=== PATIENT | male | born 1965 | race Caucasian/White ===

== ENCOUNTER 2020-04-13 07:43 | Emergency (ER) | payer MEDICAID ==
[~2020-04-13] VITALS: Ht 162.6 cm; Wt 79.8 kg
[2020-04-13 07:48] VITALS: BP 149/96
--- NOTE | 2020-04-13 07:50 | NUR ---
Pt ambulated to bed 12
--- NOTE | 2020-04-13 07:54 | NUR ---
Pt c/o difused abd pain with constipation x 2 days, states seen at clinic and diagnosed with H. Pylori 1 month ago. denies nausea or vomiting. Abdomen is soft, slight distended, and tender to palpate. No rebound tenderness or guarding noticed. SKIN IS PINK/WARM/DRY; AAOX4 WITH EVEN AND STEADY GAIT; LUNGS CLEAR BL; HR EVEN AND REGULAR; PT DENIES ANY FEVER, CP, SOB, OR COUGH AT THIS TIME; PATIENT STATES PAIN OF 8/10 AT THIS TIME; VSS; PATIENT POSITIONED FOR COMFORT; HOB ELEVATED; BEDRAILS UP X1; BED DOWN. ER MD MADE AWARE OF PT STATUS.
--- NOTE | 2020-04-13 07:56 | NUR ---
Dr. Spann is evaluating pt at bedside.
[2020-04-13] MEDS ORDERED: DICYCLOMINE 10 MG CAP PO STA (08:09)
[2020-04-13] MEDS ORDERED: FAMOTIDINE 20 MG TAB PO STA (08:09)
--- NOTE | 2020-04-13 08:19 | NUR ---
Xray is at bedside.
[2020-04-13 09:05] VITALS: BP 137/92
--- NOTE | 2020-04-13 09:05 | NUR ---
Patient discharged with v/s stable. Written and verbal after care instructions given and explained. Patient alert, oriented and verbalized understanding of instructions. Ambulatory with steady gait. All questions addressed prior to discharge. ID band removed. Patient advised to follow up with PMD. Rx of Colace and FLEET RECYAL ENEMA given. Patient educated on indication of medication including possible reaction and side effects. Opportunity to ask questions provided and answered.
== END 2020-04-13 09:05 | disposition home or self-care (01) ==
LOC: MED 07:43
DX: K59.00 Constipation, unspecified (principal); Z90.49 Acquired absence of other specified parts of digestive tract; A04.8 Other specified bacterial intestinal infections
CPT/HCPCS: 74018; 99283; Q0092

== ENCOUNTER 2020-05-03 08:19 | Emergency (ER) | payer MEDICAID ==
[~2020-05-03] VITALS: Ht 157.5 cm; Wt 81.2 kg
[2020-05-03 08:25] VITALS: BP 131/92
[2020-05-03] MEDS ORDERED: KETOROLAC 60 MG/2 ML VIAL IM ONE (08:55)
[2020-05-03] MEDS ORDERED: NACL 0.9% 1,000 ML IV ONE (09:50)
[2020-05-03] MEDS ORDERED: metroNIDAZOLE 500 MG/NS PREMIX 100 ML IV ONE (09:50)
[2020-05-03] MEDS ORDERED: SULFAMETH/TRIMETH DS 800/160MG 1 TAB PO ONE (09:50)
[2020-05-03 10:19] LABS: BASOPHILS # (AUTO) 0.1 K/uL (0.00-0.22); BASOPHILS % (AUTO) 0.8 % (0.0-2.0); EOSINOPHILS # (AUTO) 0.1 K/uL (0-0.4); EOSINOPHILS % (AUTO) 0.9 % (0.0-4.0); HEMATOCRIT 42.1 % (36-52); HEMOGLOBIN 14.1 g/dL (12.0-18.0); LYMPHOCYTES # (AUTO) 1.3 K/uL (2.0-11.5); LYMPHOCYTES % (AUTO) 17.3 % (20.5-51.1); MEAN CORPUSCULAR HEMOGLOBIN 29 pg (27-31); MEAN CORPUSCULAR HGB CONC 34 g/dL (33-37); MEAN CORPUSCULAR VOLUME 86.1 fL (80-94); MONOCYTES # (AUTO) 0.8 K/uL (0.8-1.0); MONOCYTES % (AUTO) 10.6 % (1.7-9.3); NEUTROPHILS # (AUTO) 5.4 K/uL (1.8-7.7); NEUTROPHILS % (AUTO) 70.4 % (42.2-75.2); PLATELET COUNT (AUTO) 290 K/uL (140-450); RED BLOOD CELL COUNT(AUTO) 4.89 MIL/uL (4.20-6.10); RED CELL DISTRIBUTION WIDTH 14.1 % (11.6-13.7); WHITE BLOOD COUNT (AUTO) 7.7 K/uL (4.8-10.8)
[2020-05-03 10:27] LABS: ANION GAP 16.2 (8-16); CARBON DIOXIDE 24.6 mmol/L (21-32); CREATININE 0.9 mg/dL (0.6-1.3); POTASSIUM 3.8 mmol/L (3.5-5.1)
[2020-05-03 10:33] LABS: ALBUMIN 3.6 g/dL (3.4-5.0); TOTAL BILIRUBIN 0.6 mg/dL (0.0-1.0)
[2020-05-03 11:38] VITALS: BP 125/87
== END 2020-05-03 11:39 | disposition home or self-care (01) ==
LOC: MED 08:19
DX: K57.92 Diverticulitis of intestine, part unspecified, without perforation or abscess without bleeding (principal); R03.0 Elevated blood-pressure reading, without diagnosis of hypertension
CPT/HCPCS: 36415; 74176; 80053; 81002; 85025; 87040; 96365; 96372; 99285; J1885; J3490; J7030; 96361; 99284

== ENCOUNTER 2020-05-28 18:09 | Inpatient (IN) | payer MEDICAID, SELFPAY ==
[~2020-05-28] VITALS: Ht 157.5 cm; Wt 77.6 kg
[2020-05-28 18:25] VITALS: BP 142/100
--- NOTE | 2020-05-28 18:30 | NUR ---
Note jennifer in EDM - 05/28/20 at 1910 by [email or web address] 54/M BIB SELF C/O LUQ ABDOMINAL PAIN RADIATING TO LEFT BACK 1 WEEK. SEEN HERE 05/03/20 FOR DIVERTICULITIS/COLITIS, ENLARGE PROSTATE GLAND.
--- NOTE | 2020-05-28 18:30 | NUR ---
54/M BIB SELF C/O LUQ ABDOMINAL PAIN RADIATING TO LEFT BACK 1 WEEK. SEEN HERE 05/03/20 FOR DIVERTICULITIS/COLITIS, ENLARGE PROSTATE GLAND. ABDOMEN SOFT, NON -TENDER. DENIES N/V/D; SKIN IS PINK/WARM/DRY; AAOX4 WITH EVEN AND STEADY GAIT; LUNGS CLEAR BL; HR EVEN AND REGULAR; PT DENIES ANY FEVER, CP, SOB, OR COUGH AT THIS TIME; PATIENT STATES PAIN OF 8/10 AT THIS TIME.PATIENT POSITIONED FOR COMFORT; HOB ELEVATED; BEDRAILS UP X1; BED DOWN. ER MD MADE AWARE OF PT STATUS.
[2020-05-28] MEDS: KETOROLAC 30 MG/ML VIAL IVP ONE ×2 (18:33→18:48)
--- NOTE | 2020-05-28 18:52 | NUR ---
PT TAKEN TO CT VIA W/C.
[2020-05-28 18:57] LABS: BASOPHILS # (AUTO) 0.1 K/uL (0.00-0.22); BASOPHILS % (AUTO) 1.3 % (0.0-2.0); EOSINOPHILS # (AUTO) 0.1 K/uL (0-0.4); EOSINOPHILS % (AUTO) 1.7 % (0.0-4.0); HEMATOCRIT 39.9 % (36-52); HEMOGLOBIN 13.1 g/dL (12.0-18.0); LYMPHOCYTES % (AUTO) 15.2 % (20.5-51.1); MEAN CORPUSCULAR HEMOGLOBIN 28 pg (27-31); MEAN CORPUSCULAR HGB CONC 33 g/dL (33-37); MEAN CORPUSCULAR VOLUME 85.8 fL (80-94); MONOCYTES # (AUTO) 0.8 K/uL (0.8-1.0); MONOCYTES % (AUTO) 11.4 % (1.7-9.3); NEUTROPHILS # (AUTO) 4.8 K/uL (1.8-7.7); NEUTROPHILS % (AUTO) 70.4 % (42.2-75.2); PLATELET COUNT (AUTO) 309 K/uL (140-450); RED BLOOD CELL COUNT(AUTO) 4.65 MIL/uL (4.20-6.10); WHITE BLOOD COUNT (AUTO) 6.9 K/uL (4.8-10.8)
[2020-05-28 19:00] LABS: APPEARANCE,URINE CLEAR (CLEAR); BILIRUBIN,URINE NEGATIVE (NEGATIVE); BLOOD, URINE 1+ (NEGATIVE); COLOR,URINE YELLOW (YELLOW); LEUKOCYTE ESTERASE ,URINE TRACE (NEGATIVE); NITRITE, URINE NEGATIVE (NEGATIVE); UGLUCOSE NEGATIVE (NEGATIVE)
[2020-05-28 19:09] LABS: ALBUMIN 3.2 g/dL (3.4-5.0); ANION GAP 13.8 (8-16); CARBON DIOXIDE 25.5 mmol/L (21-32); CREATININE 0.7 mg/dL (0.6-1.3); POTASSIUM 3.3 mmol/L (3.5-5.1); TOTAL BILIRUBIN 0.3 mg/dL (0.0-1.0)
--- NOTE | 2020-05-28 19:14 | NUR ---
RECEIVED REPORT FROM MELIDA LUU FOR CONTINUITY OF CARE.
[2020-05-28] MEDS ORDERED: NACL 0.9% 1,000 ML IV ONE (19:15)
[2020-05-28] MEDS ORDERED: LEVOFLOXACIN 750 MG/D5W PREMIX 150 ML IV ONE (19:15)
[2020-05-28] MEDS ORDERED: metroNIDAZOLE 500 MG/NS PREMIX 100 ML IV ONE (19:15)
[2020-05-28] MEDS ORDERED: DICYCLOMINE 20 MG/2 ML VIAL IM ONE (19:15)
--- NOTE | 2020-05-28 19:19 | NUR ---
Dr. Leavitt examining patient.
[2020-05-28] MEDS ORDERED: MORPHINE SULFATE 4 MG/ML SYR IVP ONE (19:25)
[2020-05-28] MEDS ORDERED: ONDANSETRON 4 MG/2 ML VIAL IVP ONE (19:25)
[2020-05-28 19:34] LABS: RBC,URINE 0-5 /HPF (0-5); WBC,URINE 0-5 /HPF (0-5)
[2020-05-28] MEDS ORDERED: KCL 20 MEQ/WATER INJ PREMIX 100 ML IV ONE (20:05)
--- NOTE | 2020-05-28 20:17 | NUR ---
Dr. Leavitt at patient bedside
[2020-05-28 20:24] LABS: PROTHROMBIN TIME 11.3 secs (10.8-13.4)
[2020-05-28] MEDS ORDERED: guaiFENesin DM 200/20 MG-10 ML 10 ML UDC PO PRN (21:00)
[2020-05-28] MEDS ORDERED: ONDANSETRON 4 MG/2 ML VIAL IM/IVP PRN (21:00)
[2020-05-28] MEDS ORDERED: HYDROcodone/APAP 7.5/325 MG 1 TAB PO PRN (21:00)
[2020-05-28] MEDS ORDERED: POTASSIUM CHLORIDE 40 MEQ, LIDOCAINE MPF 1% 25 MG in NACL 0.9% 250 ML IV PRN (21:00)
[2020-05-28] MEDS ORDERED: ACETAMINOPHEN 325 MG TAB PO PRN (21:00)
[2020-05-28] MEDS ORDERED: ZOLPIDEM 5 MG TAB PO PRN (21:00)
[2020-05-28] MEDS ORDERED: DOCUSATE SODIUM 100 MG GELCAP PO PRN (21:00)
[2020-05-28] MEDS ORDERED: DEXT 5% /NACL 0.9% 1,000 ML IV ONE (21:05)
--- NOTE | 2020-05-28 21:09 | NUR ---
X-Ray at bedside.
[2020-05-28] MEDS ORDERED: hydrALAZINE 20 MG/ML VIAL IVP PRN (21:10)
[2020-05-28 21:28] LABS: BARBITURATE, URINE NEGATIVE ng/ml (NEG <=200); BENZODIAZEPINE, URINE NEGATIVE ng/mL (NEG <=200); CANNABINOID, URINE NEGATIVE ng/mL (NEG <=50); COCAINE, URINE NEGATIVE ng/mL (NEG <=300); OPIATE, URINE NEGATIVE ng/mL (NEG <=2000); PHENCYCLIDINE SCREEN,URINE NEGATIVE ng/mL (NEG <=25)
[2020-05-28 21:35] LABS: CHOL/HDL RATIO 3.5 (1-4.5); FREE T4 (FREE THYROXINE) 1.12 ng/dL (0.76-1.46); MAGNESIUM 2.1 mg/dL (1.8-2.4); PHOSPHORUS 3.3 mg/dL (2.5-4.9); THYROID STIMULATING HORMONE 1.79 uIU/mL (0.34-3.74)
--- NOTE | 2020-05-28 22:30 | NUR ---
EKG DONE BY RT.
--- NOTE | 2020-05-28 22:41 | NUR ---
PT RESTING IN BED, HOB ELEVATED, CHEST RISE AND FALL NOTED. RR EVEN AND UNLABORED. NO NEW CONCERNS AT THIS TIME. PT ATTACHED TO PRINCIPAL TECHNICAL WRITER AND PULSE OXIMETRY. ALL NEEDS MET. BED LOCKED AND IN LOWEST POSITION, SIDE RAIL UPX1. WILL CONTINUE TO MONITOR.
--- NOTE | 2020-05-29 00:34 | NUR ---
PT SLEEPING IN BED, HOB ELEVATED. REPOSITIONED FOR COMFORT. CHEST RISE AND FALL NOTED. PT ATTACHED TO GENERATOR OPERATOR AND PULSE OXIMETRY. BED LOCKED AND IN LOWEST POSITION, SIDE RAIL UPX1. WILL CONTINUE TO MONITOR.
--- NOTE | 2020-05-29 02:20 | NUR ---
PT SLEEPING IN BED, HOB ELEVATED. REPOSITIONED FOR COMFORT. CHEST RISE AND FALL NOTED. PT ATTACHED TO ELEMENTARY SECRETARY AND PULSE OXIMETRY. BED LOCKED AND IN LOWEST POSITION, SIDE RAIL UPX1. WILL CONTINUE TO MONITOR.
--- NOTE | 2020-05-29 04:28 | NUR ---
OUTPUT: 1000 ML
--- NOTE | 2020-05-29 04:28 | NUR ---
PT SLEEPING IN BED, HOB ELEVATED. REPOSITIONED FOR COMFORT. CHEST RISE AND FALL NOTED. PT ATTACHED TO SOLE CUTTER AND PULSE OXIMETRY. BED LOCKED AND IN LOWEST POSITION, SIDE RAIL UPX1. WILL CONTINUE TO MONITOR.
[2020-05-29 06:16] LABS: CARBON DIOXIDE 24.9 mmol/L (21-32); CREATININE 0.7 mg/dL (0.6-1.3); POTASSIUM 3.9 mmol/L (3.5-5.1)
--- NOTE | 2020-05-29 06:17 | NUR ---
[facility] SWAB COLLECTED AND WALKED OVER TO LAB.
[2020-05-29 06:21] LABS: BASOPHILS % (AUTO) 0.4 % (0.0-2.0); EOSINOPHILS # (AUTO) 0.1 K/uL (0-0.4); EOSINOPHILS % (AUTO) 1.1 % (0.0-4.0); HEMATOCRIT 37.1 % (36-52); HEMOGLOBIN 12.4 g/dL (12.0-18.0); LYMPHOCYTES # (AUTO) 1.1 K/uL (2.0-11.5); LYMPHOCYTES % (AUTO) 15.9 % (20.5-51.1); MEAN CORPUSCULAR HEMOGLOBIN 29 pg (27-31); MEAN CORPUSCULAR HGB CONC 33 g/dL (33-37); MEAN CORPUSCULAR VOLUME 86.7 fL (80-94); MONOCYTES % (AUTO) 14.6 % (1.7-9.3); NEUTROPHILS # (AUTO) 4.6 K/uL (1.8-7.7); PLATELET COUNT (AUTO) 279 K/uL (140-450); RED BLOOD CELL COUNT(AUTO) 4.28 MIL/uL (4.20-6.10); RED CELL DISTRIBUTION WIDTH 13.6 % (11.6-13.7); WHITE BLOOD COUNT (AUTO) 6.7 K/uL (4.8-10.8)
--- NOTE | 2020-05-29 07:07 | NUR ---
GAVE REPORT TO MELIDA CHU FOR CONTINUITY OF CARE.
--- NOTE | 2020-05-29 07:45 | NUR ---
RECEIVED REPORT OVER THE PHONE FROM ER NURSE, KIMBERLEY, PT IS AOX4 ON ROOM AIR, NKA, WITH CC OF ABDOMINAL PAIN, DX OF DIVERTICULITIS/SMALL BOWEL OBSTRUCTION, PT HAS AN IV LINE ON THE LEFT HAND G. 20 ON SALINE LOCK AND ON THE RT AC G. 20 ON SALINE LOCK WELL, PT IS ON NPO AND HAS A CONSULT WITH DR. MEGAN COATES, PT WILL BE BROUGHT TO THE UNIT IN 10MINS PER PRICK STITCHER.
--- NOTE | 2020-05-29 07:45 | NUR ---
Patient will be admitted to care of Dr Howard. Admited to Tele. Will go to room 111B. Belongings list completed. Report to Cathie MONTEZ.
[2020-05-29 08:00] VITALS: BP 145/58
--- NOTE | 2020-05-29 08:00 | NUR ---
RECEIVED PT VIA GURNEY ACCOMPANIED BY ER FLUID DYNAMICIST, PT AMBULATED TO THE BED, ON RA AND NO SIGN OF DISTRESS NOTED, PT WAS ADMITTED TO TELEMETRY, MIXER OPERATOR IN PLACE, SR, IV LINE NOTED ON LEFT HAND G. 20 ON SALINE LOCK, PT DENIES PAIN, WILL CONTINUE TO MONITOR PT.
--- NOTE | 2020-05-29 08:20 | NUR ---
MRSA SWAB DONE TO PT AND SAMPLE WAS SENT TO LAB.
[2020-05-29] MEDS: PANTOPRAZOLE 40 MG INJ VIAL IVP SCH (10:17)
--- NOTE | 2020-05-29 10:17 | NUR ---
PT WAS GIVEN THE SCHEDULED AM MEDICATION VIA IV PUSH, TOLERATED, DENIES PAIN AND NO SIGN OF DISTRESS NOTED.
[2020-05-29 12:00] VITALS: BP 137/86
--- NOTE | 2020-05-29 12:55 | NUR ---
SOCIAL WORK NOTE: Patient's Orientation Person Situation Place Time Information Provided By PATIENT Comments SW WAS UNABLE TO MEET PATIENT AT BEDSIDE. SW CONTACTED ROOM PHONE WITH WAITER AND CASHIER AMA [phone] TO COMPLETE ASSESSMENT. SW VERIFIED DEMOGRAPHICS WITH PATIENT. PATIENT WOULD LIKE TO ADD DEVANTE PENN TO [facility]ER[facility] CONTACT. Tree Chipper, Realtionship and Phone Number MURALI PENN BROTHER [phone] MONICA DELGADO FRIEND [phone] Healthcare Power of Vice President For Instruction No Does Patient Have a POLST No Identifying Problems No Social Work Triggers Is A Social Work Consult Needed No Mandate Report Filed No Explanation Of Identifying Problems PATIENT IS A 54-YEAR-OLD MALE ADMITTED FOR DIVERTICULITIS AND POSSIBLE SEPSIS. PATIENT HAS PMHX OF DIVERTICULITIS. Admitted From Home Pre-Admission Level Of Functioning Status Independent/Ambulatory Prior Resources/Services Used In Last 12 Months No Prior Resources Used Prior DME No Prior DME Used Dialysis Comments N/A Living Situation Lives With Friend/Other House Rents A Room Other Living Situation/Comment PATIENT LIVES WITH MULTIPLE ROOMMATES. Patient Had Caregiver No Home Support No Caregiver Issues Financial Issues No Known Financial Issue Referral To The Financial Counselor Needed No Factors/Needs No D/C Needs Identified Explanation And Or Other Factors Affecting/Possible DC Needs PATIENT STATED THAT BROTHER OR [facility] CAN TRANSPORT PATIENT HOME AFTER DISCHARGE. Pt/Rep Participated In Discharge Plan Yes Patient/Family Agress With Discharge Plan Yes Discharge Plan Comments TENTATIVE DISCHARGE PLAN IS FOR PATIENT TO RETURN HOME. DC Plan Status Initiated
--- NOTE | 2020-05-29 13:22 | NUR ---
PT WAS DOWNGRADED TO MED-SURG NOW.
[2020-05-29 16:00] VITALS: BP 140/75
--- NOTE | 2020-05-29 17:14 | NUR ---
PT WAS GIVEN IVPB LEVAQUIN NOW, WILL MONITOR PT.
[2020-05-29] MEDS ORDERED: LEVOFLOXACIN 750 MG/D5W PREMIX 150 ML IV SCH (18:00)
--- NOTE | 2020-05-29 19:30 | NUR ---
ENDORSED PT TO GUSSET EDGER NURSEASHLEE FOR CONTINUITY OF CARE.
--- NOTE | 2020-05-29 19:30 | NUR ---
RECEIVED REPORT FROM SOPHY MONTEZ DAYSHIFT NURSE AT BEDSIDE FOR CONTINUITY OF CARE, PT IN STABLE CONDITION.
[2020-05-29 20:00] VITALS: BP 116/77
--- NOTE | 2020-05-29 20:00 | NUR ---
PT LYING IN BED AOX4 AND INDONESIAN SPEAKING PT SKIN INTACT AND HE IS ABLE TO AMBULATE TO THE TOILET AND BACK WITH A STEADY GAIT. PT RESPIRATIONS EVEN AND UNLABORED ON ROOM AIR. LUNGS CLEAR AND BOWEL SOUNDS HYPOACTIVE. HE HAS 2 IV SITES RAC 20G AND LEFT HAND 20G BOTH INTACT AND ASYMPTOMATIC. LEVAQUIN COMPLETED. PT V/S FOLLOWS: T 98.8 P 85 R 18 B/P 116/72 02 97% ON ROOM AIR. PT SAYS HE A MINOR AMOUNT OF PAIN AND DOESN'T WANT ANY PAIN MEDS AT THIS TIME.
[2020-05-29] MEDS ORDERED: PIPERACILLIN/TAZOBACTAM 3.375 GM VIAL IV ONE (20:07)
--- NOTE | 2020-05-29 20:15 | NUR ---
BONY GAYTAN AND IS RUNNING AT 100MLS/HR. EDUCATION REGARDING MEDICATION PURPOSE AND SIDE EFFECTS PROVIDED. PT VERBALIZED UNDERSTANDING WITH REINFORCEMENT.
[2020-05-29] MEDS: PIPERACILLIN/TAZOBACTAM 3.375 GM in DEXTROSE 5% 50 ML IV SCH (20:18)
--- NOTE | 2020-05-29 22:00 | NUR ---
PT C/O 4/10 ABDOMINAL PAIN AND WAS GIVEN PO/PRN NORCO TAB FOR MODERATE PAIN.
[2020-05-30] VITALS: BP 128/83
--- NOTE | 2020-05-30 00:25 | NUR ---
PT IN BED AWAKE NO S/S OF PAIN OR DISTRESS NOTED. ZOSYN HUNG AND IS RUNNING AT 100MLS/HR. PT V/S FOLLOWS: T 97.0 P 75 R 118 B/P 124/79 02 97% ON ROOM AIR. ALL UNIVERSAL FALLS PRECAUTIONS IN PLACE.
[2020-05-30] MEDS: PIPERACILLIN/TAZOBACTAM 3.375 GM in DEXTROSE 5% 50 ML IV SCH ×3 (00:59→12:37)
--- NOTE | 2020-05-30 02:00 | NUR ---
ROUNDS DONE PT IN BED RESTING WITH EYES CLOSED, NO S/S OF PAIN OR DISTRESS NOTED. ALL UNIVERSAL FALLS PRECAUTIONS IN PLACE.
[2020-05-30 04:00] VITALS: BP 130/86
--- NOTE | 2020-05-30 05:45 | NUR ---
PT IN BED NO S/S OF PAIN OR DISTRESS NOTED. ZOSYN HUNG ORDERED.
[2020-05-30] MEDS ORDERED: PIPERACILLIN/TAZOBACTAM 3.375 GM VIAL IV ONE (06:31)
[2020-05-30 07:08] LABS: BASOPHILS % (AUTO) 0.6 % (0.0-2.0); EOSINOPHILS # (AUTO) 0.1 K/uL (0-0.4); EOSINOPHILS % (AUTO) 2.4 % (0.0-4.0); HEMATOCRIT 38.3 % (36-52); HEMOGLOBIN 12.7 g/dL (12.0-18.0); LYMPHOCYTES # (AUTO) 1.1 K/uL (2.0-11.5); LYMPHOCYTES % (AUTO) 19.8 % (20.5-51.1); MEAN CORPUSCULAR HEMOGLOBIN 29 pg (27-31); MEAN CORPUSCULAR HGB CONC 33 g/dL (33-37); MEAN CORPUSCULAR VOLUME 85.9 fL (80-94); MONOCYTES # (AUTO) 0.9 K/uL (0.8-1.0); MONOCYTES % (AUTO) 15.8 % (1.7-9.3); NEUTROPHILS # (AUTO) 3.6 K/uL (1.8-7.7); NEUTROPHILS % (AUTO) 61.4 % (42.2-75.2); PLATELET COUNT (AUTO) 288 K/uL (140-450); RED BLOOD CELL COUNT(AUTO) 4.46 MIL/uL (4.20-6.10); WHITE BLOOD COUNT (AUTO) 5.8 K/uL (4.8-10.8)
--- NOTE | 2020-05-30 07:20 | NUR ---
REC'D REPORT FROM NIGHT NURSE. PT RESTING COMFORTABLY, DIVEHI SPEAKING, PLEASANT GENTLEMAN, DENIES PAIN. CALL LIGHT WITHIN REACH. BED LOWEST POSITION,.
[2020-05-30 07:23] LABS: ANION GAP 13.4 (8-16); CARBON DIOXIDE 25.2 mmol/L (21-32); CREATININE 0.7 mg/dL (0.6-1.3); POTASSIUM 3.6 mmol/L (3.5-5.1)
[2020-05-30 08:00] VITALS: BP 135/87
[2020-05-30] MEDS: PANTOPRAZOLE 40 MG INJ VIAL IVP SCH (08:45)
--- NOTE | 2020-05-30 08:47 | NUR ---
PATIENT HAS BEEN SCREENED AND CATEGORIZED MODERATE NUTRITION RISK. PATIENT WILL BE SEEN WITHIN 3-5 DAYS OF ADMISSION. 05/31/20 06/02/[address]
[2020-05-30 09:14] LABS: T4 (THYROXINE) 8.9 ug/dL (4.5-12.0)
--- NOTE | 2020-05-30 11:53 | NUR ---
PT RESTING COMFORTABLY, ON PHONE WITH FAMILY. CALL LIGHT WITHIN REACH, BED LOWEST POSITION.
[2020-05-30] MEDS ORDERED: LEVO750T51 PO (12:04)
--- NOTE | 2020-05-30 12:37 | NUR ---
SCHEDULED MEDICATION ZOSYN GIVEN AND TOLERATED WELL. NO S/S OF RESPIRATORY DISTRESS OR DISCOMFORT NOTED AT THIS TIME. WILL CONTINUE TO MONITOR.
--- NOTE | 2020-05-30 14:29 | NUR ---
DC PLANNIN YRS OLD MALE PATIENT WAS ADMITTED FROM HOME WITH A DX OF DIVERTICULITIS, POSSIBLE SBO. PT HAS A HX OF DIVERTICULOSIS AND DIVERTICULITIS. CT ABD/PELVIS SHOWED DIVERTICULITIS. SEEN BY SURGEON DR COATES RECOMMENDED IV ABX AND BOWEL REST AND NO SURGERY NEEDED AT THIS TIME. ID DR SAWYER SEEN PATIENT RECOMMENDED STABLE FOR DISCHARGE WITH PO ABX AND CLOSE OUTPATIENT FOLLOW-UP WITH PCP. DC PATIENT HOME AND F/U WITH PCP.
--- NOTE | 2020-05-30 14:30 | NUR ---
PT RESTING IN BED. NO S/S OF RESPIRATORY DISTRESS OR DISCOMFORT NOTED AT THIS TIME. NO S/S OF RESPIRATORY DISTRESS OR DISCOMFORT NOTED AT THIS TIME. WILL CONTINUE TO MONITOR.
[2020-05-30 16:31] VITALS: BP 139/86
[2020-05-30 16:43] VITALS: BP 135/87
--- NOTE | 2020-05-30 16:48 | NUR ---
ADMINISTERED ACETAMINOPHEN 650 MG PER MD ORDER FOR TEMP >100. PT CURRENTLY AT 100.8. INSTRUCTED PT TO REMOVE SOCKS AND SWEAT PANTS CURRENTLY WORN. PROVIDED ICE WATER FOR COOLING. CALL LIGHT WITHIN REACH, BED LOWEST POSITION.
--- NOTE | 2020-05-30 18:00 | NUR ---
TEMPERATURE 99.3F DR. PERKINS AWARE AND WAS TOLD TO GO AHEAD WITH THE DISCHARGE. PT RESTING IN BED. NO S/S OF RESPIRATORY DISTRESS OR DISCOMFORT NOTED AT THIS TIME. WILL CONTINUE TO MONITOR.
--- NOTE | 2020-05-30 18:55 | NUR ---
PT SIGNED DISCHARGE PAPERWORK. USED WHEELCHAIR TO TAKE PT TO FRONT LOBBY WHERE FAMILY IS WAITING. ASSISTED PT TO THE CAR. PT STABLE AT THIS TIME.
== END 2020-05-30 18:55 | disposition home or self-care (01) | DRG 244 ==
LOC: MED 18:09 → MTU 20:34
PROVIDERS: ADMIT Family Medicine; ATTEND Family Medicine
DX: K57.32 Diverticulitis of large intestine without perforation or abscess without bleeding (principal); Z20.828 Contact with and (suspected) exposure to other viral communicable diseases; R18.8 Other ascites; K56.41 Fecal impaction; K44.9 Diaphragmatic hernia without obstruction or gangrene; K40.90 Unilateral inguinal hernia, without obstruction or gangrene, not specified as recurrent; E87.6 Hypokalemia; E44.1 Mild protein-calorie malnutrition; Z68.31 Body mass index [BMI] 31.0-31.9, adult; E78.5 Hyperlipidemia, unspecified; I10 Essential (primary) hypertension; B96.89 Other specified bacterial agents as the cause of diseases classified elsewhere
CPT/HCPCS: 36415; 71045; 80048; 80053; 80305; 81001; 82150; 83036; 83605; 83690; 83735; 83880; 84100; 84436; 84439; 84443; 84479; 84484; 85025; 85610; 85730; 86886; 86900; 86901; 87040; 87081; 93005; 96365; 96368; 96375; 99285; C9113; J0500; J1885; J1956; J2001; J2270; J2405; J2543; J3480; J3490; J7030; J7060

== ENCOUNTER 2020-07-10 08:13 | Emergency (ER) | payer MEDICAID, SELFPAY ==
[~2020-07-10] VITALS: Ht 165.1 cm; Wt 70.8 kg
[~2020-07-10 08:13] MED LIST: LEVO750T51 PO
[2020-07-10 10:09] VITALS: BP 155/112
--- NOTE | 2020-07-10 10:13 | NUR ---
PT ASKED TO WAIT IN ER LOBBY TO WAIT FOR MSE.
--- NOTE | 2020-07-10 10:15 | NUR ---
55/M presents to ED with c/o mid abdominal pain and states he has been vomiting all night. Pt has no active vomiting while in triage. Pt also c/o hiccups. Patient reports being seen at [facility] on Saturday and was given Rx for Famotidine, [place], Reglan but states it has not been helping. Was told he had "a mass in his intestine." Patient reports moderate pain in the middle of his abdomen constant in nature with no alleviating factors. Pt AOX4, namibian speaking. Denies fever or chills.
[2020-07-10] MEDS ORDERED: DICYCLOMINE 20 MG/2 ML VIAL IM ONE ×2 (11:25→14:39)
[2020-07-10] MEDS ORDERED: NACL 0.9% 1,000 ML IV ONE (11:25)
[2020-07-10] MEDS ORDERED: ONDANSETRON 4 MG/2 ML VIAL IVP ONE (11:25)
[2020-07-10] MEDS ORDERED: MORPHINE SULFATE 4 MG/ML SYR IVP ONE (11:25)
[2020-07-10 12:26] LABS: BASOPHILS % (AUTO) 0.4 % (0.0-2.0); HEMATOCRIT 35.2 % (36-52); HEMOGLOBIN 11.5 g/dL (12.0-18.0); LYMPHOCYTES # (AUTO) 0.6 K/uL (2.0-11.5); LYMPHOCYTES % (AUTO) 4.8 % (20.5-51.1); MEAN CORPUSCULAR HEMOGLOBIN 27 pg (27-31); MEAN CORPUSCULAR HGB CONC 33 g/dL (33-37); MEAN CORPUSCULAR VOLUME 81.3 fL (80-94); MONOCYTES # (AUTO) 0.8 K/uL (0.8-1.0); MONOCYTES % (AUTO) 6.7 % (1.7-9.3); NEUTROPHILS % (AUTO) 88.1 % (42.2-75.2); PLATELET COUNT (AUTO) 424 K/uL (140-450); RED BLOOD CELL COUNT(AUTO) 4.32 MIL/uL (4.20-6.10); RED CELL DISTRIBUTION WIDTH 14.2 % (11.6-13.7); WHITE BLOOD COUNT (AUTO) 12.4 K/uL (4.8-10.8)
[2020-07-10 12:54] LABS: ALBUMIN 2.9 g/dL (3.4-5.0); ANION GAP 13.8 (8-16); CARBON DIOXIDE 29.2 mmol/L (21-32); CREATININE 0.6 mg/dL (0.6-1.3); TOTAL BILIRUBIN 0.3 mg/dL (0.0-1.0)
[2020-07-10] MEDS ORDERED: MORPHINE SULFATE 4 MG/ML SYR ONE (13:30)
[2020-07-10] MEDS ORDERED: ONDANSETRON 4 MG/2 ML VIAL ONE (13:30)
[2020-07-10] MEDS ORDERED: PIPERACILLIN/TAZOBACTAM 3.375 GM in DEXTROSE 5% 50 ML IV ONE (13:40)
[2020-07-10] MEDS ORDERED: metroNIDAZOLE 500 MG/NS PREMIX 100 ML IV ONE (13:40)
[2020-07-10] MEDS ORDERED: KCL 20 MEQ/WATER INJ PREMIX 100 ML IV ONE (14:10)
--- NOTE | 2020-07-10 14:30 | NUR ---
Pt moved to [place] [id number].
[2020-07-10 14:37] LABS: APPEARANCE,URINE CLEAR (CLEAR); BILIRUBIN,URINE NEGATIVE (NEGATIVE); BLOOD, URINE TRACE-I (NEGATIVE); COLOR,URINE YELLOW (YELLOW); LEUKOCYTE ESTERASE ,URINE NEGATIVE (NEGATIVE); NITRITE, URINE NEGATIVE (NEGATIVE); UGLUCOSE NEGATIVE (NEGATIVE)
[2020-07-10] MEDS ORDERED: PIPERACILLIN/TAZOBACTAM 3.375 GM VIAL IV ONE (14:40)
[2020-07-10] MEDS ORDERED: ACETAMINOPHEN 325 MG TAB PO PRN (15:30)
[2020-07-10] MEDS ORDERED: HYDROcodone/APAP 7.5/325 MG 1 TAB PO PRN (15:30)
[2020-07-10] MEDS ORDERED: POTASSIUM CHLORIDE 10 MEQ TABER PO PRN (15:30)
[2020-07-10] MEDS ORDERED: ONDANSETRON 4 MG/2 ML VIAL IM/IVP PRN (15:30)
[2020-07-10] MEDS ORDERED: DEXT 5% /NACL 0.9% 1,000 ML IV SCH (15:30)
[2020-07-10] MEDS ORDERED: DOCUSATE SODIUM 100 MG GELCAP PO PRN (15:30)
[2020-07-10 15:36] LABS: RBC,URINE NONE SEEN /HPF (0-5); WBC,URINE NONE SEEN /HPF (0-5)
[2020-07-10 16:46] LABS: PROTHROMBIN TIME 11.6 secs (10.8-13.4)
[2020-07-10 16:58] LABS: CHOL/HDL RATIO 4.3 (1-4.5); FREE T4 (FREE THYROXINE) 1.42 ng/dL (0.76-1.46); THYROID STIMULATING HORMONE 1.11 uIU/mL (0.34-3.74)
--- NOTE | 2020-07-10 18:21 | NUR ---
Patient appears to be resting in bed. abd pain 5/10 at this time. Vital Signs within normal limits. Respirations even and unlabored.
--- NOTE | 2020-07-10 18:53 | NUR ---
DR. PARHAM EN ROUTE TO ASSESS PATIENT IN ER.
--- NOTE | 2020-07-10 18:55 | NUR ---
covid rashawn swab collected.
--- NOTE | 2020-07-10 19:23 | NUR ---
Pt report given to [facility]. Transfer of care at this time.
--- NOTE | 2020-07-10 19:23 | NUR ---
RECEIVED REPORT FROM MELIDA LUU FOR CONTINUATION OF CARE AT THIS TIME.
--- NOTE | 2020-07-10 19:45 | NUR ---
PT IS AWAKE AND IS LAYING IN LOW FOWLERS POSITION. PT IS CONNECTED TO THE PORTABLE CARPENTER MAINTENANCE. SAO2@96%. BED IS LOCKED AND IN LOWEST POSITION. SIDE RAILSX1. PT IS NOT IN ANY ACUTE DISTRESS AT THIS TIME. WILL CONTINUE TO MONITOR.
--- NOTE | 2020-07-10 20:05 | NUR ---
DR. PARHAM AT BEDSIDE
--- NOTE | 2020-07-10 20:16 | NUR ---
TECHNOLOGY ADMINISTRATOR IS AT BEDSIDE SPEAKING TO THE SURGEON REGARDING NEED FOR HIGHER LEVEL OF CARE AND INCREASED ACUITY.
--- NOTE | 2020-07-10 20:48 | NUR ---
PT CONSENTED TO GIVE ANAHI PENN HIS DAUGHTER INFORMATION ABOUT HIS STATUS AND CARE AT THIS TIME. ANAHI WAS UPDATED ON THE PTS STATUS
[2020-07-10] MEDS ORDERED: PIPERACILLIN/TAZOBACTAM 3.375 GM in DEXTROSE 5% 50 ML IV SCH (21:00)
--- NOTE | 2020-07-10 21:20 | NUR ---
PT SIGNED CONSENT FORM TO LEAVE AMA AT THIS TIME.
--- NOTE | 2020-07-10 21:20 | NUR ---
PT'S DAUGHTER ANAHI WAS NOTIFIED THAT THE PT IS SIGNING OUT AMA AND NEEDED TO BE PICKED UP.
--- NOTE | 2020-07-10 21:38 | NUR ---
PT DAUGHTER AT BEDSIDE
[2020-07-10 21:51] VITALS: BP 148/88
--- NOTE | 2020-07-10 21:51 | NUR ---
PT LEFT AMA WITH PT DAUGHTER
--- NOTE | 2020-07-10 21:51 | NUR ---
Patient does not wish to proceed with medical care recommended by . Patient given information related to possible complications, up to and including , which could occur as a result of leaving hospital at this time. Patient verbalizes understanding of risks involved leaving against medical advice. Patient has signed AMA form.
[2020-07-11 08:06] LABS: T4 (THYROXINE) 8.7 ug/dL (4.5-12.0)
--- NOTE | 2020-07-13 14:19 | NUR ---
LATE ENTRY -- DEXTROSE INFUSION ENDED AT 2150 07/10/20
== END 2020-07-10 14:54 | disposition admitted as inpatient to this hospital (09) ==
LOC: MED 08:13 → UNDOADMIN 14:54 → MTU 14:54 → UNDODISIN 21:51
DX: K56.609 Unspecified intestinal obstruction, unspecified as to partial versus complete obstruction (principal); Z20.828 Contact with and (suspected) exposure to other viral communicable diseases; K63.9 Disease of intestine, unspecified; E87.6 Hypokalemia; Z79.899 Other long term (current) drug therapy; Z90.49 Acquired absence of other specified parts of digestive tract
CPT/HCPCS: 36415; 74177; 80053; 80061; 81001; 82150; 83036; 83605; 83690; 84436; 84439; 84443; 84479; 85025; 85610; 85730; 87040; 87426; 93005; 96361; 96365; 96366; 96367; 96368; 96372; 99285; J0500; J2270; J2405; J2543; J3480; J3490; J7030; Q9967